=== PATIENT | female | born 1990 | race Caucasian/White ===

== ENCOUNTER 2021-04-03 15:11 | Inpatient (IN) | payer BC ==
[~2021-04-03 15:11] MED LIST: Lidocaine 2% with EPINEPHrine 1:200,000 20 ML SDV ONE; Sodium Bicarbonate 8.4% 50 MEQ/50 ML SDV ONE
[2021-04-03] MEDS ORDERED: Sodium Chloride 0.9% 10 ML Syringe FLUSH PRN (15:29)
[2021-04-03] MEDS ORDERED: Nalbuphine 10 MG/1 ML Vial IVPUSH PRN (15:29)
[2021-04-03] MEDS ORDERED: Ondansetron 4 MG/2 ML SDV IVPUSH PRN (15:29)
[2021-04-03] MEDS ORDERED: Oxytocin/Lactated Ringers 10 UNIT/1,000 ML BAG IV SCH (15:30)
[2021-04-03] MEDS ORDERED: Sodium Chloride 0.9% 10 ML Syringe FLUSH SCH (21:00)
[2021-04-03] MEDS ORDERED: ePHEDrine 50 MG/ML SDV IVPUSH PRN (21:19)
[2021-04-03] MEDS ORDERED: diphenhydrAMINE 50 MG/ML SDV IVPUSH PRN (21:19)
[2021-04-03] MEDS ORDERED: Bupivacaine/fentaNYL/NS 100 ML Bag EPIDUR PRN (21:19)
[2021-04-03] MEDS ORDERED: fentaNYL 100 MCG/2 ML SDV EPIDUR PRN (21:19)
[2021-04-03] MEDS: Lactated Ringers 1,000 ML IV SCH ×2 (21:32→21:33)
[2021-04-04] MEDS: Lactated Ringers 1,000 ML IV SCH ×2 (00:12→00:14)
[2021-04-04] MEDS ORDERED: Witch Hazel Medicated Pads 40/Jar TOP PRN (00:17)
[2021-04-04] MEDS ORDERED: Acetaminophen 325 MG Tab PO PRN (00:17)
[2021-04-04] MEDS ORDERED: Benzocaine/Menthol 20%-0.5% Spray 78 GM Cannister TOP PRN (00:17)
[2021-04-04] MEDS: Ibuprofen 800 MG Tab PO PRN ×3 (00:34→20:13)
[2021-04-04 20:26] VITALS: BP 122/73; PULSE 76
== END 2021-04-04 23:30 | disposition home or self-care (01) | DRG 560 ==
LOC: JD.OB 15:11 → JD.OBCHECK 15:11 → JD.OB 15:29 → JD.OBCHECK 15:29 → OBSVTOIN 22:52 → JD.OB 22:53
PROVIDERS: ADMIT Family Medicine; ATTEND Family Medicine
PROC: 10E0XZZ Delivery of Products of Conception, External Approach (ICD-10-PCS; principal; 2021-04-03)
PROC: 10907ZC Drainage of Amniotic Fluid, Therapeutic from Products of Conception, Via Natural or Artificial Opening (ICD-10-PCS; 2021-04-03)
PROC: 0KQM0ZZ Repair Perineum Muscle, Open Approach (ICD-10-PCS; 2021-04-03)
PROC: 3E0R3BZ Introduction of Anesthetic Agent into Spinal Canal, Percutaneous Approach (ICD-10-PCS; 2021-04-03)
PROC: 00HU33Z Insertion of Infusion Device into Spinal Canal, Percutaneous Approach (ICD-10-PCS; 2021-04-03)
DX: O48.0 Post-term pregnancy (principal); Z37.0 Single live birth; G43.909 Migraine, unspecified, not intractable, without status migrainosus; O99.354 Diseases of the nervous system complicating childbirth; O70.1 Second degree perineal laceration during delivery; O77.0 Labor and delivery complicated by meconium in amniotic fluid; O76 Abnormality in fetal heart rate and rhythm complicating labor and delivery; Z20.822 Contact with and (suspected) exposure to COVID-19; Z3A.41 41 weeks gestation of pregnancy; Z88.0 Allergy status to penicillin
CPT/HCPCS: 36415; 51701; 59025; 59409; 80053; 82570; 84156; 85025; 86592; 87340; A9270-GY; G0433; J2590; J3010; J7120; U0002

== ENCOUNTER 2021-04-12 15:41 | Emergency (ER) | payer BC ==
[2021-04-12 16:07] VITALS: BP 136/90; PULSE 115
[2021-04-12 17:31] LABS: CORONAVIRUS COVID-19 NAA NEGATIVE (NEGATIVE)
[2021-04-12] MEDS ORDERED: cefTRIAXone 1 GM in Sodium Chloride 0.9% 100 ML IV ONE (18:10)
[2021-04-12] MEDS ORDERED: Ketorolac 30 MG/ML SDV IVPUSH ONE (18:13)
== END 2021-04-12 19:30 | disposition home or self-care (01) ==
LOC: JD.ED 15:41
DX: N30.01 Acute cystitis with hematuria (principal); Z88.0 Allergy status to penicillin; Z20.822 Contact with and (suspected) exposure to COVID-19
CPT/HCPCS: 0240U; 36415; 80053; 81001; 83735; 85025; 86140; 87040; 87086; 96365; 96375; 99283; J0696; J1885; 99284